=== PATIENT | female | born 1970 ===

== ENCOUNTER → 2023-02-15 08:03 | Outpatient (BNVA) | payer OTHER, SELFPAY | PROVIDERS: PCP Internal Medicine; Visit Provider Psychiatry & Neurology Neurology | DX: Z13.89 Encounter for screening for other disorder (principal) ==

== ENCOUNTER → 2023-03-16 07:27 | Outpatient (BNVA) | payer OTHER, SELFPAY | PROVIDERS: PCP Internal Medicine; Visit Provider Psychiatry & Neurology Neurology | DX: M79.672 Pain in left foot (principal); R20.0 Anesthesia of skin ==

== ENCOUNTER 2023-04-12 10:28 | Outpatient (REF) | payer OTHER, SELFPAY ==
--- NOTE | 2023-04-12 09:30 | EMG_ITS ---
Please see scanned EMG / Nerve Conduction Report. MTDD
== END 2023-04-12 10:29 | disposition home or self-care (01) ==
LOC: HO.NEURO 10:28
PROVIDERS: Visit Provider Psychiatry & Neurology Neurology
DX: M79.672 Pain in left foot (principal); R20.0 Anesthesia of skin
CPT/HCPCS: 95885; 95910

== ENCOUNTER 2023-06-27 07:36 | Outpatient (AMB) | payer OTHER, SELFPAY ==
--- NOTE | 2023-06-27 07:38 | MHC.OFFVIS ---
Intake Vital Signs 06/27/23 07:40 Weight 136 lb 2 oz BP 110/88 Blood Pressure Location Rt brachial Position Sitting Pulse 92 Pulse Source Pulse Oximeter Pulse Oximetry (%) 97 Oxygen Delivery Method Room Air Intake Visit Reasons: 3m follow up Neuropathic-lvm Allergies No Known Allergies Allergy (Verified 06/27/23 07:38) Medication List - Last Reconciled 06/27/23 by Shirley Doherty MD calcitriol mcg PO BID calcium carbonate (Calcium) 600 mg PO DAILY levothyroxine (Levoxyl) 0 mcg PO 6XW magnesium oxide 400 mg PO BEDTIME omeprazole 20 mg PO DAILY ropinirole ER 2 mg PO BEDTIME HPI HPI Comments History of Present Illness Details 52y/o right handed female comes for left foot numbness and pain.She is doing better with ropinirole Xr 2mg qhs , she is able to sleep better. She is active during daytime X ray showed incidental heel spurs EMG - showed left lateral plantar sensory nerve possible entrapment. [facility] Medical History (Updated 06/27/23 @ 08:03 by Shirley Doherty MD) GERD (gastroesophageal reflux disease) Hypothyroidism Left foot pain Neuropathy of left lateral plantar nerve Numbness Parathyroid dysfunction Thyroid cancer Surgical History H/O thyroidectomy History of carpal tunnel release Family History Father Alzheimer disease HTN (hypertension) Mother HTN (hypertension) Hyperlipidemia Social History Alcohol intake: never Patient Tobacco Use Status: Never used Tobacco Physical Exam Vital Signs: Last Vital Signs Pulse 92 06/27/23 07:40 BP 110/88 06/27/23 07:40 Pulse Ox 97 06/27/23 07:40 Oxygen Delivery Method Room Air 06/27/23 07:40 Const General: cooperative, healthy appearing and comfortable Nutritional Appearance: average body habitus Orientation/consciousness: patient oriented x3 Limitations: no limitations HEENT Head: Yes normal to inspection, Yes normocephalic and Yes atraumatic Face and sinus: Yes normal facial exam Eyes Pupils: Equal, round and reactive pupils present Neck Neck: Yes no meningeal signs Neuro General: patient oriented x3, tone normal, moves all extremities, no meningeal signs and no focal motor deficits Cranial nerves: Yes Facial sensation intact/muscles of mastication intact, Yes Equal, round and reactive pupils present, Yes Bilaterally intact EOM present, Yes Nystagmus not present, Yes Normal facial strength present, Yes Midline tongue present and Yes Symmetric palate elevation present Cognition (Neuro): normal cognition Gait exam (Neuro): Normal gait present Motor exam (neuro): 5/5 motor strength present throughout and Normal motor muscle tone present throughout Coordination: [id number] test normal Assessment & Plan Assessment & Plan (1) Left foot pain: Code(s): M79.672 - Pain in left foot (2) Numbness: Code(s): R20.0 - Anesthesia of skin (3) Neuropathy of left lateral plantar nerve: Code(s): G57.62 - Lesion of plantar nerve, left lower limb Plan [facility] for treatment with steroid injection There is a musculoskeletal component as well Continue Ropinirole XR 2mg qhs for possible secondary RLS continue gabapentin 400mg qhs Orders: Orders PT Evaluation and Treatment Today G57.62 - Lesion of plantar nerve, left lower limb, M79.672 - Pain in left foot Referrals Pain Management Referral G57.62 - Lesion of plantar nerve, left lower limb, M79.672 - Pain in left foot Coding Level of Care Code Est Pt Level 4 (05633) Diagnoses Left foot pain M79.672 Numbness R20.0 Neuropathy of left lateral plantar nerve G57.62
[2023-06-27 07:40] VITALS: BP 110/88; PULSE 92; O2SAT 97
== END 2023-06-27 08:10 | disposition home or self-care (01) ==
PROVIDERS: Visit Provider Psychiatry & Neurology Neurology
DX: M79.672 Pain in left foot (principal); R20.0 Anesthesia of skin; G57.62 Lesion of plantar nerve, left lower limb
CPT/HCPCS: 99214

== ENCOUNTER → 2023-06-27 07:36 | Outpatient (BNVA) | payer OTHER, SELFPAY | PROVIDERS: Visit Provider Psychiatry & Neurology Neurology | DX: M79.672 Pain in left foot (principal); R20.0 Anesthesia of skin ==

== ENCOUNTER 2023-07-18 08:25 | Outpatient (AMB) | payer OTHER, SELFPAY ==
--- NOTE | 2023-07-18 08:30 | MHC.OFFVIS ---
Intake Vital Signs 07/18/23 08:31 Height 5 ft 1 in Weight 137 lb 8 oz BMI 26.0 BP 132/78 Blood Pressure Location Rt brachial Position Sitting Respiration 16 Pulse 84 Pulse Source Pulse Oximeter Pulse Oximetry (%) 98 Oxygen Delivery Method Room Air Intake Visit Reasons: Lesion of plantar nerve, left lower limb Allergies No Known Allergies Allergy (Verified 07/18/23 08:30) HPI HPI Comments History of Present Illness Details Vanessa is a very pleasant 52 year old female who presents to the office today for evaluation and management of her chronic left foot pain and numbness. Patient reports pain has been ongoing for last 1.5 years without inciting injury. She states started with some numbness to the fifth toe but has progressively worsened. Now with pain and numbness to plantar surface of the left foot that will radiate into the lower leg with walking. Pain is burning and aching, worse and night and impacting her ability to sleep. She had recent EMG, results reviewed with patient during visit, as per below. Patient has tried ice, rest, compression, NSAIDs, gabapentin without relief. She was evaluated by podiatry and had a series of cortisone injections that provided no relief. She is currently taking requip with some relief at night but notes the pain is most severe during the night, at times will wake her up. Lack of sleep is negatively impacting her mental emotional well being. Condition is described aching, burning, stabbing, sharp and numb. Pain is negatively impacting her enjoyment of life, recreational activities, general activity and sleep. [facility] Medical History (Updated 07/18/23 @ 08:34 by Jenny Maldonado APRN, BUSINESS INFO CONSULTANT) GERD (gastroesophageal reflux disease) Hypothyroidism Left foot pain Neuropathy of left lateral plantar nerve Numbness Parathyroid dysfunction Thyroid cancer Surgical History H/O thyroidectomy History of carpal tunnel release Family History Father Alzheimer disease HTN (hypertension) Mother HTN (hypertension) Hyperlipidemia Social History Alcohol intake: never Patient Tobacco Use Status: Never used Tobacco Review of Systems Const All systems reviewed & are unremarkable except as noted in HPI and below Physical Exam General: awake, alert, oriented. Answers questions appropriately. Fully engaged in examination. Skin: warm, dry, intact. HEENT: Normocephalic. Hearing intact. Cardiac: External chest normal in appearance. Respiratory: No cough, audible wheezing or stridor. MS: No obvious swelling or deformities. Able to transition from sit to stand unassisted. Ambulates with bilaterally normal heel strike and toe off Neurological: Oriented to person, place, time and situation. Thought process intact. Psychiatric: Appropriate mood and affect. Good judgment and insight. Results Reviewed Results Reviewed: 04/12/2023 Assessment & Plan Assessment & Plan (1) Neuropathy of left lateral plantar nerve: Code(s): G57.62 - Lesion of plantar nerve, left lower limb (2) Tarsal tunnel syndrome of left side: Comment: Left foot Code(s): G57.52 - Tarsal tunnel syndrome, left lower limb Plan Vanessa is a very pleasant 52 year old female who presented to the office today for evaluation and management of her chronic left foot pain and numbness. History, physical exam and recent EMG consistent with Tarsal Tunnel Syndrome of left foot. Discussed options for treatment including diagnostic interventional testing, steroid injections, peripheral nerve stimulation with Sprint and more permanent neuromodulation. Will schedule patient for US guided left foot exam with potential plantar nerve release with Dr. Knapp. If no relief with nerve release or if nerve is not able to be visualized at time of exam will then plan for diagnostic testing and PNS. All questions and concerns have been answered and patient agrees with the plan. Follow up after US exam, sooner if needed. Coding Level of Care Code New Pt Level 4 (60651) Diagnoses Neuropathy of left lateral plantar nerve G57.62 Tarsal tunnel syndrome of left side G57.52
[2023-07-18 08:31] VITALS: BP 132/78; PULSE 84; RESP 16; O2SAT 98; BMI 26.0
== END 2023-07-18 08:46 | disposition home or self-care (01) ==
PROVIDERS: PCP Internal Medicine; Visit Provider Registered Nurse Emergency
DX: G57.62 Lesion of plantar nerve, left lower limb (principal); G57.52 Tarsal tunnel syndrome, left lower limb
CPT/HCPCS: 99204

== ENCOUNTER → 2023-07-18 08:25 | Outpatient (BNVA) | payer OTHER, SELFPAY | PROVIDERS: PCP Internal Medicine; Visit Provider Registered Nurse Emergency ==

== ENCOUNTER 2023-09-08 07:58 | Outpatient (AMB) | payer OTHER, SELFPAY ==
[2023-09-08 08:34] VITALS: BP 138/92; PULSE 87; O2SAT 97
--- NOTE | 2023-09-08 08:34 | MHC.OFFVIS ---
Intake Vital Signs 09/08/23 08:34 Weight 135 lb BP 138/92 H Blood Pressure Location Lt brachial Position Sitting Pulse 87 Pulse Oximetry (%) 97 Oxygen Delivery Method Room Air Intake Visit Reasons: 2m follow up Neuropathic-confirmed Allergies No Known Allergies Allergy (Verified 07/18/23 08:30) HPI HPI Comments History of Present Illness Details 52y/o right handed female comes for left foot numbness and pain she was seen by pain management but did not have any procedures due to insurance issues. she is not sure if she has follow up.She is active during daytime X ray showed incidental heel spurs EMG - showed left lateral plantar sensory nerve possible entrapment. [facility] Medical History Neuropathy of left lateral plantar nerve Numbness Left foot pain GERD (gastroesophageal reflux disease) Parathyroid dysfunction Hypothyroidism Thyroid cancer Surgical History History of carpal tunnel release H/O thyroidectomy Family History Father Alzheimer disease HTN (hypertension) Mother HTN (hypertension) Hyperlipidemia Social History Alcohol intake: never Patient Tobacco Use Status: Never used Tobacco Physical Exam Vital Signs: Last Vital Signs Pulse 87 09/08/23 08:34 BP 138/92 H 09/08/23 08:34 Pulse Ox 97 09/08/23 08:34 Oxygen Delivery Method Room Air 09/08/23 08:34 Const General: cooperative, healthy appearing and comfortable Nutritional Appearance: average body habitus Orientation/consciousness: patient oriented x3 Limitations: no limitations HEENT Head: Yes normal to inspection, Yes normocephalic and Yes atraumatic Face and sinus: Yes normal facial exam Eyes Pupils: Equal, round and reactive pupils present Neck Neck: Yes no meningeal signs Neuro General: patient oriented x3, tone normal, moves all extremities, no meningeal signs and no focal motor deficits Cranial nerves: Yes Facial sensation intact/muscles of mastication intact, Yes Equal, round and reactive pupils present, Yes Bilaterally intact EOM present, Yes Nystagmus not present, Yes Normal facial strength present, Yes Midline tongue present and Yes Symmetric palate elevation present Cognition (Neuro): normal cognition Gait exam (Neuro): Normal gait present Motor exam (neuro): 5/5 motor strength present throughout and Normal motor muscle tone present throughout Coordination: [id number] test normal Assessment & Plan Assessment & Plan (1) Tarsal tunnel syndrome of left side: Comment: Left foot Code(s): G57.52 - Tarsal tunnel syndrome, left lower limb (2) Neuropathy of left lateral plantar nerve: Code(s): G57.62 - Lesion of plantar nerve, left lower limb Plan Increase ropinirole XR 4mg qhs Alpha lipoic acid- 600mg qd Lido gel F/u pain management Medications: New alpha lipoic acid 300 mg PO DAILY 60 caps 0RF lidocaine 4% 1 appl topical BID 113 grams 6RF Changed From ropinirole ER 2 mg PO BEDTIME 30 tabs 6RF To ropinirole ER 4 mg PO BEDTIME 30 tabs 6RF Coding Level of Care Code Est Pt Level 4 (06526) Diagnoses Tarsal tunnel syndrome of left side G57.52 Neuropathy of left lateral plantar nerve G57.62
== END 2023-09-08 08:37 | disposition home or self-care (01) ==
PROVIDERS: PCP Internal Medicine; Visit Provider Psychiatry & Neurology Neurology
DX: G57.52 Tarsal tunnel syndrome, left lower limb (principal); G57.62 Lesion of plantar nerve, left lower limb
CPT/HCPCS: 99214

== ENCOUNTER → 2023-09-08 07:58 | Outpatient (BNVA) | payer OTHER, SELFPAY | PROVIDERS: PCP Internal Medicine; Visit Provider Psychiatry & Neurology Neurology | DX: M79.672 Pain in left foot (principal); R20.0 Anesthesia of skin; G57.62 Lesion of plantar nerve, left lower limb ==

== ENCOUNTER 2023-09-18 14:46 | Outpatient (AMB) | payer OTHER, SELFPAY ==
--- NOTE | 2023-09-18 14:51 | MHC.OFFVIS ---
Intake Vital Signs 09/18/23 14:52 Height 5 ft 1 in Weight 133 lb BMI 25.1 Blood Pressure Location Rt radial Position Sitting Respiration 12 Pulse Source Pulse Oximeter Intake Visit Reasons: Left plantar nerve release/Confirmed Allergies No Known Allergies Allergy (Verified 09/18/23 14:54) Medication List - Last Reconciled 09/18/23 by Faiza Tobin LPN alpha lipoic acid 300 mg PO DAILY calcitriol mcg PO BID calcium carbonate (Calcium) 600 mg PO DAILY gabapentin 300 mg PO BEDTIME levothyroxine (Levoxyl) 0 mcg PO 6XW lidocaine 4% 1 appl topical BID magnesium oxide 400 mg PO BEDTIME omeprazole 20 mg PO DAILY ropinirole ER 4 mg PO BEDTIME HPI Left plantar nerve release/Confirmed HPI Details 52-year-old female who presents today to the office for a left plantar nerve hydrodissection and release. She has pain and numbness on the lateral plantar surface of the left foot. [facility] Medical History Neuropathy of left lateral plantar nerve Numbness Left foot pain GERD (gastroesophageal reflux disease) Parathyroid dysfunction Hypothyroidism Thyroid cancer Surgical History History of carpal tunnel release H/O thyroidectomy Family History Father Alzheimer disease HTN (hypertension) Mother HTN (hypertension) Hyperlipidemia Social History Alcohol intake: never Patient Tobacco Use Status: Never used Tobacco Review of Systems Const All systems reviewed & are unremarkable except as noted in HPI and below Physical Exam Vital Signs: Last Vital Signs Resp 12 09/18/23 14:52 BMI result Body Mass Index 25.1 General: Appears afebrile. Alert and oriented. Mood and affect appropriate. Follows and participates in conversation appropriately. Respiratory effort is unlabored. Able to transition from sit to stand unassisted. Ambulates with bilaterally normal heel strike and toe off. Office Procedures Nerve Block Details: Lateral plantar nerve block with saline hydrodissection After obtaining written consent, pre-procedure blood pressure and heart rate were stable and recorded in the nursing record. The patient was placed lateral on the table. The medial malleolus and heel area overlying the tibial and lateral plantar nerves was widely prepped with chloraprep, allowed to dry. Using ultrasound, the appropriate landmarks including the tibial artery and tibial nerve were identified. the lateral plantar nerves were isolated. A 1.5 in 25 gauge needle was advanced and a dilute solution of 0.2% lidocaine the, 15 mL total, was infiltrated in the tissue and fascia surrounding the lateral plantar nerves. The needle was removed, skin cleansed and a sterile bandage was applied. The patient tolerated the procedure well and no complications were encountered. Following the procedure the patient's vital signs and knee strength were stable. The patient was discharged home in good condition with post-procedural instructions. Time Out: Immediately prior to the procedure, the following was verbally confirmed that there is a signed consent form and that the correct patient, planned procedure, site and side are consistent with documentation and that necessary equipment and/or blood products are available prior to the start of the case. Complications: none EBL: <1 cc Procedure code (CPT) selection complete ( Ultrasound images stored in patient record) Results Reviewed Results Reviewed: No imaging is available for review. Assessment & Plan Assessment & Plan (1) Neuropathy of left lateral plantar nerve: Code(s): G57.62 - Lesion of plantar nerve, left lower limb Plan Patient is status post lateral plantar nerve block with saline hydrodissection. She endorsed a paresthesia sensation following the procedure in the distribution of her usual pain. Patient tolerated procedure well and was discharged home in stable condition with discharge instructions. All questions were answered. We will follow-up in two weeks via telephone or in clinic to assess response to therapy. A follow-up appointment was made during today's visit. Scribed for Dr. Knapp by Ko Martinez medical support specialist, on 09/18/2023. I, Dr. Knapp, have personally reviewed and agree with the information entered by the scribe. Coding Level of Care Code Procedure Only Diagnoses Neuropathy of left lateral plantar nerve G57.62
[2023-09-18 14:52] VITALS: RESP 12; BMI 25.1
== END 2023-09-18 15:45 | disposition home or self-care (01) ==
PROVIDERS: PCP Internal Medicine; Visit Provider Internal Medicine
DX: G57.62 Lesion of plantar nerve, left lower limb (principal)
CPT/HCPCS: 64455; 76942

== ENCOUNTER → 2023-09-18 14:46 | Outpatient (BNVA) | payer OTHER, SELFPAY | PROVIDERS: PCP Internal Medicine; Visit Provider Internal Medicine | DX: G57.62 Lesion of plantar nerve, left lower limb (principal) | CPT/HCPCS: 64455 ==

== ENCOUNTER 2023-10-02 08:39 | Outpatient (AMB) | payer OTHER, SELFPAY ==
[2023-10-02 08:48] VITALS: RESP 12
--- NOTE | 2023-10-02 08:48 | MHC.OFFVIS ---
Intake Vital Signs 10/02/23 08:48 Height 5 ft 1 in Blood Pressure Location Lt brachial Position Sitting Respiration 12 Pulse Source Pulse Oximeter Intake Visit Reasons: ? repeat left plantar release/confirmed Allergies No Known Allergies Allergy (Verified 10/02/23 08:50) HPI ? repeat left plantar release/confirmed HPI Details 52-year-old female who presents today to the office for a repeat left foot/plantar nerve block. The patient reports no relief following the procedure. She continues to experience burning sensations in her foot. She reports a stabbing sensation in her pinky toe. She took her ?s tramadol medication once with no relief. She sleeps for only two hours before being woken due to pain. She has tried gabapentin in the past with no relief. She is taking ropinirole (4 mg) and magnesium oxide (400 mg). She states that walking and applying pressure alleviate pain. She has also seen two podiatrists in the past without benefit. Past procedure: 09/19/2023: Lateral plantar nerve block with saline hydrodissection: No relief. [facility] Medical History Neuropathy of left lateral plantar nerve Numbness Left foot pain GERD (gastroesophageal reflux disease) Parathyroid dysfunction Hypothyroidism Thyroid cancer Surgical History History of carpal tunnel release H/O thyroidectomy Family History Father Alzheimer disease HTN (hypertension) Mother HTN (hypertension) Hyperlipidemia Social History Alcohol intake: never Patient Tobacco Use Status: Never used Tobacco Review of Systems Const All systems reviewed & are unremarkable except as noted in HPI and below Physical Exam Vital Signs: Last Vital Signs Resp 12 10/02/23 08:48 General: Appears afebrile. Alert and oriented. Mood and affect appropriate. Follows and participates in conversation appropriately. Respiratory effort is unlabored. Able to transition from sit to stand unassisted. Ambulates with bilaterally normal heel strike and toe off. There is no tenderness to palpation overlying the lateral plantar nerves distal to the tarsal tunnel. There is reproduction of symptoms in her left pinky with pressure on the posterior tibial nerve in the left calf. Office Procedures Nerve Block Details: Left posterior tibial nerve block, ultrasound guided After obtaining written consent, pre-procedure blood pressure and heart rate were stable and recorded in the nursing record. The patient was placed lateral on the table. The posterior calf area overlying the left lower leg was widely prepped with chloraprep, allowed to dry. Using ultrasound, the appropriate landmarks including the posterior tibial artery and nerve were identified. A 25 gauge 1.5 in needle was advanced under sonographic guidance to the posterior tibial nerve. Aspiration was negative for heme. 5 cc of bupivacaine 0.25% was injected around the posterior tibial nerve. The needle was removed, skin cleansed and a sterile bandage was applied. The patient tolerated the procedure well and no complications were encountered. Following the procedure the patient's vital signs and foot strength were stable. The patient was discharged home in good condition with post-procedural instructions. Time Out: Immediately prior to the procedure, the following was verbally confirmed that there is a signed consent form and that the correct patient, planned procedure, site and side are consistent with documentation and that necessary equipment and/or blood products are available prior to the start of the case. Complications: none EBL: <1 cc An ultrasound image of the injection was taken and stored in the permanent record. Procedure code (CPT) selection complete Results Reviewed Results Reviewed: No imaging is available for review. Assessment & Plan Assessment & Plan (1) Neuropathy of left lateral plantar nerve: Code(s): G57.62 - Lesion of plantar nerve, left lower limb Plan Patient is status post left posterior tibial nerve block. She reported 100% relief of symptoms and numbness in her lateral foot 10 minutes after the procedure. Patient tolerated procedure well and was discharged home in stable condition with discharge instructions. All questions were answered. We will follow-up in 3 weeks to consider a hydrodissection of the posterior tibial nerve if today's procedure does not provide her with longer term relief. In case of failure of blocks and hydro dissection, we will consider placement of a temporary nerve stimulator. Scribed for Dr. Knapp by Ko Martinez, chief medical technologist, on 10/02/2023. I, Dr. Knapp, have personally reviewed and agree with the information entered by the scribe. Orders: Orders AMB Nerve Block Today G57.62 - Lesion of plantar nerve, left lower limb Medications: New lidocaine (PF) 2 mL peripheral nerve block ONCE 2 mL 0RF G57.62 - Lesion of plantar nerve, left lower limb Coding Level of Care Code Procedure Only Diagnoses Neuropathy of left lateral plantar nerve G57.62
== END 2023-10-02 09:21 | disposition home or self-care (01) ==
PROVIDERS: PCP Internal Medicine; Visit Provider Internal Medicine
DX: G57.52 Tarsal tunnel syndrome, left lower limb (principal)
CPT/HCPCS: 64450; 76942

== ENCOUNTER → 2023-10-02 08:39 | Outpatient (BNVA) | payer OTHER, SELFPAY | PROVIDERS: PCP Internal Medicine; Visit Provider Internal Medicine | DX: G57.62 Lesion of plantar nerve, left lower limb (principal) | CPT/HCPCS: 64450; J0665 ==

== ENCOUNTER 2023-10-23 15:35 | Outpatient (AMB) | payer OTHER, SELFPAY ==
--- NOTE | 2023-10-23 15:37 | MHC.OFFVIS ---
Intake Vital Signs 10/23/23 15:38 Height 5 ft 1 in Weight 133 lb BMI 25.1 Blood Pressure Location Rt brachial Position Sitting Respiration 12 Intake Visit Reasons: follow up options discussion/confirmed Allergies No Known Allergies Allergy (Verified 10/23/23 15:39) Medication List - Last Reconciled 10/23/23 by Faiza Tobin LPN alpha lipoic acid 300 mg PO DAILY calcitriol mcg PO BID calcium carbonate (Calcium) 600 mg PO DAILY gabapentin 300 mg PO BEDTIME levothyroxine (Levoxyl) 0 mcg PO 6XW lidocaine 4% 1 appl topical BID magnesium oxide 400 mg PO BEDTIME omeprazole 20 mg PO DAILY ropinirole ER 4 mg PO BEDTIME tramadol 50 mg PO Q6H PRN HPI follow up options discussion/confirmed HPI Details 52-year-old female who presents today to the office for a follow-up discussion of treatment option. The patient reports one day of relief following the procedure. Her pain was back to baseline after one day. She has some soreness in the morning, which resolves after walking. She reports throbbing, stabbing pain in her foot that radiates to her pinky toes at night. She has difficulty sleeping. She took tramadol, which helps take the edge off. She has a scheduled appointment for an MRI scan of her foot on 11/15/23. 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 Past procedures: 10/02/23: Left posterior tibial nerve block, ultrasound guided: One day of relief. 09/19/2023: Lateral plantar nerve block with saline hydrodissection: No relief. [facility] Medical History Neuropathy of left lateral plantar nerve Numbness Left foot pain GERD (gastroesophageal reflux disease) Parathyroid dysfunction Hypothyroidism Thyroid cancer Surgical History History of carpal tunnel release H/O thyroidectomy Family History Father Alzheimer disease HTN (hypertension) Mother HTN (hypertension) Hyperlipidemia Social History Alcohol intake: never Patient Tobacco Use Status: Never used Tobacco Review of Systems Const All systems reviewed & are unremarkable except as noted in HPI and below Physical Exam Vital Signs: Last Vital Signs Resp 12 10/23/23 15:38 BMI result Body Mass Index 25.1 General: Appears afebrile. Alert and oriented. Mood and affect appropriate. Follows and participates in conversation appropriately. Respiratory effort is unlabored. Able to transition from sit to stand unassisted. Ambulates with bilaterally normal heel strike and toe off. Office Procedures Nerve Block Details: Lateral plantar nerve block with saline hydrodissection, ultrasound guided After obtaining written consent, pre-procedure blood pressure and heart rate were stable and recorded in the nursing record. The patient was placed lateral on the table. The medial malleolus and heel area overlying the tibial and lateral plantar nerves was widely prepped with chloraprep, allowed to dry. Using ultrasound, the appropriate landmarks including the tibial artery and tibial nerve were identified. the lateral plantar nerves were isolated. A 1.5 in 25 gauge needle was advanced and a dilute solution of 0.25% lidocaine the, 10 mL total, was infiltrated in the tissue and fascia surrounding the lateral plantar nerves. The needle was removed, skin cleansed and a sterile bandage was applied. The patient tolerated the procedure well and no complications were encountered. Following the procedure the patient's vital signs and knee strength were stable. The patient was discharged home in good condition with post-procedural instructions. Time Out: Immediately prior to the procedure, the following was verbally confirmed that there is a signed consent form and that the correct patient, planned procedure, site and side are consistent with documentation and that necessary equipment and/or blood products are available prior to the start of the case. Complications: none EBL: <1 cc An ultrasound image of the injection was taken and stored in the permanent record. Procedure code (CPT) selection complete Results Reviewed Results Reviewed: No imaging is available for review. Assessment & Plan Assessment & Plan (1) Tarsal tunnel syndrome of left side: Comment: Left foot Code(s): G57.52 - Tarsal tunnel syndrome, left lower limb (2) Neuropathy of left lateral plantar nerve: Code(s): G57.62 - Lesion of plantar nerve, left lower limb Plan Patient is status post lateral plantar nerve block with saline hydrodissection. Patient tolerated procedure well and was discharged home in stable condition with discharge instructions. All questions were answered. Unfortunately she has not had much of a response to our multiple rounds of variable nerve blocks and hydrodissection. Following the MRI, we will potentially plan for trial of left tibial nerve stimulator placement. The other option I discussed with her is exploration by a plastic surgeon to see where the nerve might be entrapped. Patient expressed understanding. Scribed for Dr. Knapp by Ko Martinez, medical office secretary, on 10/23/2023. I, Dr. Knapp, have personally reviewed and agree with the information entered by the scribe. Coding Level of Care Code Est Pt Level 3 (57362) Diagnoses Tarsal tunnel syndrome of left side G57.52 Neuropathy of left lateral plantar nerve G57.62
[2023-10-23 15:38] VITALS: RESP 12; BMI 25.1
== END 2023-10-23 16:15 | disposition home or self-care (01) ==
PROVIDERS: PCP Internal Medicine; Visit Provider Internal Medicine
DX: G57.62 Lesion of plantar nerve, left lower limb (principal); G57.52 Tarsal tunnel syndrome, left lower limb
CPT/HCPCS: 64455; 76942; 99213

== ENCOUNTER → 2023-10-23 15:35 | Outpatient (BNVA) | payer OTHER, SELFPAY | PROVIDERS: PCP Internal Medicine; Visit Provider Internal Medicine | DX: G57.52 Tarsal tunnel syndrome, left lower limb (principal); G57.62 Lesion of plantar nerve, left lower limb | CPT/HCPCS: 64455; J0665 ==

== ENCOUNTER 2023-11-14 18:22 | Outpatient (REF) | payer OTHER, SELFPAY ==
--- NOTE | ~2023-11-14 | MR_ITS ---
EXAMINATION: MRI of the left foot without contrast CLINICAL INFORMATION: reason for Exam G57.62 - Lesion of plantar nerve, left lower limb COMPARISON: None. TECHNIQUE: MRI of the left foot is performed without contrast and high field MRI scanner. FINDINGS: Neurovascular structures: Normal. No mass/neuroma. Muscles Visualized plantar fascia: Normal. Ligaments capsular structures normal. Bone/joints: Normal. MR/MR foot LT wo con IMPRESSION: Normal MRI of the left foot. No mass/neuroma.
== END 2023-11-14 18:23 | disposition home or self-care (01) ==
LOC: HO.MRI 18:22
PROVIDERS: PCP Internal Medicine; Visit Provider Psychiatry & Neurology Neurology
DX: G57.62 Lesion of plantar nerve, left lower limb (principal); M79.672 Pain in left foot; G57.52 Tarsal tunnel syndrome, left lower limb
CPT/HCPCS: 73718